=== PATIENT | female | born 1970 | race Caucasian/White ===

== ENCOUNTER 2018-09-30 16:50 | Emergency (ER) | payer SELFPAY ==
[~2018-09-30] VITALS: Ht 162.6 cm; Wt 77.1 kg
[2018-09-30 17:10] LABS: BASO % 0 % (0-3); EOS # 0.1 x10^3/uL (0.0-0.7); EOS % 2 % (0-3); HEMATOCRIT 37.8 % (36.0-47.0); HEMOGLOBIN 13.3 g/dL (12.0-15.5); LYMPH # 1.4 x10^3/uL (1.0-4.8); LYMPH % 17 % (24-48); MEAN CORPUSCULAR HEMOGLOBIN 32 pg (25-35); MEAN CORPUSCULAR HGB CONC 35 g/dL (31-37); MEAN CORPUSCULAR VOLUME 90 fL (79-100); MONO # 0.4 x10^3/uL (0.0-1.1); MONO % 5 % (0-9); NEUT # 6.4 x10^3uL (1.8-7.7); NEUT % 76 % (31-73); PLATELET COUNT 302 x10^3/uL (140-400); RED BLOOD COUNT 4.21 x10^6/uL (3.50-5.40); RED CELL DISTRIBUTION WIDTH 13.8 % (11.5-14.5); WHITE BLOOD COUNT 8.5 x10^3/uL (4.0-11.0)
[2018-09-30 17:20] LABS: PROTHROMBIN TIME PATIENT 12.5 SEC (11.7-14.0)
[2018-09-30 17:24] LABS: CALCIUM 9.1 mg/dL (8.5-10.1); CREATININE 0.9 mg/dL (0.6-1.0); GFR 66.3
[2018-09-30 17:31] LABS: ALBUMIN 3.6 g/dL (3.4-5.0); MAGNESIUM 2.1 mg/dL (1.8-2.4); TOTAL BILIRUBIN 0.4 mg/dL (0.2-1.0); TOTAL PROTEIN 7.3 g/dL (6.4-8.2)
[2018-09-30 18:05] VITALS: BP 120/73
--- NOTE | 2018-09-30 23:54 | RAD ---
AP portable chest radiograph 09/30/2018 Clinical History: Unenhanced CT. Chest pressure for one hour. An AP erect portable digital radiograph of the chest was obtained. Comparison study is dated 07/19/2012. The cardiac silhouette is normal in size. The thoracic aorta is mildly tortuous. No acute pulmonary infiltrate is seen. Blunting of the left costophrenic angle is seen which likely represents pleural thickening, unchanged. A small calcified granuloma is seen involving the right lower lobe. No pneumothorax is noted. Degenerative changes are seen involving the thoracic spine and both shoulders. Impression: No acute abnormality is seen. Electronically signed by: Edmundo Villa MD (09/30/2018 11:51 PM) [id number]
--- NOTE | 2018-10-01 05:06 | EKG ---
[facility] [address] [place] [address] Test Date: 2018-09-30 Test Time: 16:57:46 Pat Name: RUBY MURRIETA Department: Room: Gender: F Vice President: : 1970 Requested By: JESSICA SIERRA Order Number: [id number] Reading MD: Feng Escobar Measurements Intervals [place] Rate: 71 P: 25 MN: 128 QRS: 60 QRSD: 88 T: 50 QT: 382 QTc: 420 Interpretive Statements SINUS RHYTHM NO SPECIFIC ECG ABNORMALITIES RI6.01 Compared to ECG 12/23/2012 18:21:34 No significant changes Electronically Signed On 10-01-2018 9:50:00 FINANCE CLERK by Feng Escobar
== END 2018-09-30 18:47 | disposition home or self-care (01) ==
LOC: ER 16:50
DX: I47.1 Supraventricular tachycardia (principal); F17.200 Nicotine dependence, unspecified, uncomplicated
CPT/HCPCS: 36415; 71045; 80053; 82550; 83735; 83880; 84484; 85025; 85610; 93005; 99284

== ENCOUNTER 2018-10-28 21:26 | Emergency (ER) | payer SELFPAY ==
[~2018-10-28] VITALS: Ht 162.6 cm; Wt 77.1 kg
--- NOTE | 2018-10-28 21:50 | PHYS DOC ---
Past Medical History Past Medical History: Hypothyroid Additional Past Medical Histor: SVT, RA, HEP C W/ JACE TX Past Surgical History: Other Additional Past Surgical Histo: ECTOPIC Alcohol Use: None Drug Use: None Adult General Chief Complaint Chief Complaint: RAPID HEART RATE HPI HPI Patient is a 48 year old female who presents with SVT. Patient has had this before. Tonight's*rate started approximately 30 minutes prior to calling EMS. She was unable to use any of her home techniques to break the SVT. EMS arrived, established IV access, and gave her adenosine which did resolve the SVT. Patient denies any chest pain or palpitations. No nausea or vomiting.[] Review of Systems Review of Systems Constitutional: Denies fever or chills [] Eyes: Denies change in visual acuity, redness, or eye pain [] HENT: Denies nasal congestion or sore throat [] Respiratory: Denies cough or shortness of breath [] Cardiovascular: No additional information not addressed in HPI [] GI: Denies abdominal pain, nausea, vomiting, bloody stools or diarrhea [] : Denies dysuria or hematuria [] Musculoskeletal: Denies back pain or joint pain [] Integument: Denies rash or skin lesions [] Neurologic: Denies headache, focal weakness or sensory changes [] Endocrine: Denies polyuria or polydipsia [] All other systems were reviewed and found to be within normal limits, except as documented in this note. Allergies Allergies Allergies Coded Allergies Type Severity Reaction Last Updated Verified No Known Drug Allergies 09/30/18 No Physical Exam Physical Exam Constitutional: Well developed, well nourished, no acute distress, non-toxic appearance. [] HENT: Normocephalic, atraumatic, bilateral external ears normal, oropharynx moist, no oral exudates, nose normal. [] Eyes: PERRLA, EOMI, conjunctiva normal, no discharge. [] Neck: Normal range of motion, no tenderness, supple, no stridor. [] Cardiovascular:Heart rate regular rhythm, no murmur [] Lungs & Thorax: Bilateral breath sounds clear to auscultation [] Abdomen: Bowel sounds normal, soft, no tenderness, no masses, no pulsatile masses. [] Skin: Warm, dry, no erythema, no rash. [] Back: No tenderness, no CVA tenderness. [] Extremities: No tenderness, no cyanosis, no clubbing, ROM intact, no edema. [] Neurologic: Alert and oriented X 3, normal motor function, normal sensory function, no focal deficits noted. [] Psychologic: Affect normal, judgement normal, mood normal. [] Current Patient Data Vital Signs Vital Signs Date Time Temp Pulse Resp B/P (MAP) Pulse Ox O2 Delivery O2 Flow Rate FiO2 10/28/18 21:30 98.4 69 22 134/72 (92) 100 Room Air 98.4 Lab Values Laboratory Tests Test 10/28/18 21:45 10/28/18 22:30 White Blood Count 7.0 x10^3/uL (4.0-11.0) Red Blood Count 4.21 x10^6/uL (3.50-5.40) Hemoglobin 13.2 g/dL (12.0-15.5) Hematocrit 37.3 % (36.0-47.0) Mean Corpuscular Volume 89 fL (79-100) Mean Corpuscular Hemoglobin 31 pg (25-35) Mean Corpuscular Hemoglobin Concent 35 g/dL (31-37) Red Cell Distribution Width 13.5 % (11.5-14.5) Platelet Count 316 x10^3/uL (140-400) Neutrophils (%) (Auto) 69 % (31-73) Lymphocytes (%) (Auto) 23 % (24-48) L Monocytes (%) (Auto) 6 % (0-9) Eosinophils (%) (Auto) 1 % (0-3) Basophils (%) (Auto) 1 % (0-3) Neutrophils # (Auto) 4.8 x10^3uL (1.8-7.7) Lymphocytes # (Auto) 1.6 x10^3/uL (1.0-4.8) Monocytes # (Auto) 0.5 x10^3/uL (0.0-1.1) Eosinophils # (Auto) 0.1 x10^3/uL (0.0-0.7) Basophils # (Auto) 0.0 x10^3/uL (0.0-0.2) Prothrombin Time 12.6 SEC (11.7-14.0) Prothrombin Time INR 1.0 (0.8-1.1) Sodium Level 143 mmol/L (136-145) Potassium Level 4.5 mmol/L (3.5-5.1) Chloride Level 105 mmol/L (98-107) Carbon Dioxide Level 31 mmol/L (21-32) Anion Gap 7 (6-14) Blood Urea Nitrogen 12 mg/dL (7-20) Creatinine 1.0 mg/dL (0.6-1.0) Estimated GFR (Cockcroft-Gault) 58.7 BUN/Creatinine Ratio 12 (6-20) Glucose Level 95 mg/dL (70-99) Calcium Level 9.8 mg/dL (8.5-10.1) Magnesium Level 2.2 mg/dL (1.8-2.4) Total Bilirubin 0.3 mg/dL (0.2-1.0) Aspartate Amino Transferase (AST) 16 U/L (15-37) Alanine Aminotransferase (ALT) 18 U/L (14-59) Alkaline Phosphatase 85 U/L (46-116) Troponin I Quantitative < 0.017 ng/mL (0.000-0.055) Total Protein 7.8 g/dL (6.4-8.2) Albumin 3.9 g/dL (3.4-5.0) Albumin/Globulin Ratio 1.0 (1.0-1.7) Laboratory Tests 10/28/18 21:45 Laboratory Tests 10/28/18 22:30 EKG EKG EKG showed a sinus rhythm, 67 bpm, normal axis, QTC 423 ms, no ST elevation, no acute changes from EKG of 09/30/2018.[] Radiology/Procedures Radiology/Procedures Chest x-ray AP view was taken of the chest. Heart is normal in size. There is slight density at the left costophrenic angle which is similar to an old study from 2012 is probably chronic pleural thickening. No other infiltrates are noted. There is a granuloma at the right costophrenic angle. No other new infiltrates are noted. The heart is normal in size. IMPRESSION: 1. Chronic pleural thickening on the left. 2. No acute infiltrates[] Course & Med Decision Making Course & Med Decision Making Pertinent Labs and Imaging studies reviewed. (See chart for details) ED course: Patient arrived, was placed in bed, tolerated exam well. Patient remained in sinus rhythm. After return of laboratory and imaging studies these were discussed with the patient who voiced understanding. All questions were answered. Hector decision making: This patient appears to have had another episode of SVT. No evidence of acute coronary syndrome, no evidence of significant electrolyte abnormality. No evidence of pneumonia or pneumothorax.[] Dragon Disclaimer Dragon Disclaimer This electronic medical record was generated, in whole or in part, using a voice recognition dictation system. Departure Departure Impression: Primary Impression: Supraventricular tachycardia Disposition: 01 HOME, SELF-CARE Condition: GOOD Referrals: RJ LAGUNA APRN (PCP) Follow up in 2 days Patient Instructions: Supraventricular Tachycardia Additional Instructions: Follow-up with your regular doctor in 2 days. Return to the ER if worsening palpitations, chest pain, or any other concerns. ROSALIND DODD DO Oct 28, 2018 21:50
[2018-10-28 21:55] LABS: BASO % 1 % (0-3); EOS # 0.1 x10^3/uL (0.0-0.7); EOS % 1 % (0-3); HEMATOCRIT 37.3 % (36.0-47.0); HEMOGLOBIN 13.2 g/dL (12.0-15.5); LYMPH # 1.6 x10^3/uL (1.0-4.8); LYMPH % 23 % (24-48); MEAN CORPUSCULAR HEMOGLOBIN 31 pg (25-35); MEAN CORPUSCULAR HGB CONC 35 g/dL (31-37); MEAN CORPUSCULAR VOLUME 89 fL (79-100); MONO # 0.5 x10^3/uL (0.0-1.1); MONO % 6 % (0-9); NEUT # 4.8 x10^3uL (1.8-7.7); NEUT % 69 % (31-73); PLATELET COUNT 316 x10^3/uL (140-400); RED BLOOD COUNT 4.21 x10^6/uL (3.50-5.40); RED CELL DISTRIBUTION WIDTH 13.5 % (11.5-14.5)
[2018-10-28 22:09] LABS: PROTHROMBIN TIME PATIENT 12.6 SEC (11.7-14.0)
--- NOTE | 2018-10-28 22:13 | RAD ---
AP chest. HISTORY: Heart palpitations AP view was taken of the chest. Heart is normal in size. There is slight density at the left costophrenic angle which is similar to an old study from 2012 is probably chronic pleural thickening. No other infiltrates are noted. There is a granuloma at the right costophrenic angle. No other new infiltrates are noted. The heart is normal in size. IMPRESSION: 1. Chronic pleural thickening on the left. 2. No acute infiltrates. Electronically signed by: Tone Lopez MD (10/28/2018 10:09 PM) [id number]
[2018-10-28 22:56] LABS: CALCIUM 9.8 mg/dL (8.5-10.1); GFR 58.7; POTASSIUM 4.5 mmol/L (3.5-5.1)
[2018-10-28 23:00] VITALS: BP 156/80
[2018-10-28 23:02] LABS: ALBUMIN 3.9 g/dL (3.4-5.0); MAGNESIUM 2.2 mg/dL (1.8-2.4); TOTAL BILIRUBIN 0.3 mg/dL (0.2-1.0); TOTAL PROTEIN 7.8 g/dL (6.4-8.2)
--- NOTE | 2018-10-29 09:05 | EKG ---
[facility] [address] [place] [address] Test Date: 2018-10-28 Test Time: 21:30:03 Pat Name: RUBY MURRIETA Department: Room: Gender: F Senior Nuclear Medicine Technologist: : 1970 Requested By: ROSALIND DODD Order Number: [id number] Reading MD: Feng Escobar Measurements Intervals [place] Rate: 67 P: 34 CT: 132 QRS: 51 QRSD: 92 T: 28 QT: 398 QTc: 423 Interpretive Statements SINUS RHYTHM NO SPECIFIC ECG ABNORMALITIES RI6.01 Compared to ECG 09/30/2018 16:57:46 No significant changes Electronically Signed On 11-05-2018 10:54:39 CREATIVE GURU by Feng Escobar
== END 2018-10-28 23:19 | disposition home or self-care (01) ==
LOC: ER 21:26
DX: I47.1 Supraventricular tachycardia (principal); E03.9 Hypothyroidism, unspecified; M06.9 Rheumatoid arthritis, unspecified
CPT/HCPCS: 36415; 71045; 80053; 83735; 83880; 84443; 84484; 85025; 85610; 93005; 99284

== ENCOUNTER 2019-09-02 18:18 | Emergency (ER) | payer SELFPAY ==
[~2019-09-02] VITALS: Ht 162.6 cm; Wt 79.4 kg
[2019-09-02 18:41] VITALS: BP 155/78
[2019-09-02] MEDS ORDERED: BUPIVACAINE MPF 0.5% 30 ML VIAL. INJ ONE (18:45)
--- NOTE | 2019-09-02 19:03 | PHYS DOC ---
Past Medical History Past Medical History: Hypothyroid Additional Past Medical Histor: SVT Past Surgical History: No Surgical History Additional Past Surgical Histo: ECTOPIC Alcohol Use: None Drug Use: None Adult General Chief Complaint Chief Complaint: FINGER INJURY HPI HPI Patient is a 49 year old female, accompanied by her significant other, who presents to the emergency department with complaints of a laceration and pain to her left index finger distal to the DIP. Patient states she accidentally shut her finger between 2 car doors. She denies any numbness, tingling, or weakness. She is unsure when her last tetanus shot was. Currently the patient rates her pain a 10 out of 10 on the pain scale, she denies any alleviating factors, the pain is worse with movement or palpation. Review of Systems Review of Systems Constitutional: Denies fever or chills [] Musculoskeletal: see HPI; see HPI [] Neurologic: Denies focal weakness or sensory changes [] Complete systems were reviewed and found to be within normal limits, except as documented in this note. Current Medications Current Medications Current Medications Medications (Trade) Dose Ordered Sig/Teresa Start Time Stop Time Status Last Admin Dose Admin Acetaminophen/ Hydrocodone Bitart (Lortab 5/325) 1 tab 1X ONCE 09/02/19 21:15 09/02/19 21:16 DC 09/02/19 21:24 1 TAB Bupivacaine HCl (Sensorcaine Mpf 0.5%) 30 ml 1X ONCE 09/02/19 18:45 09/02/19 18:46 DC 09/02/19 19:59 30 ML Diphtheria/ Tetanus/Acell Pertussis (Boostrix) 0.5 ml ONCE ONCE 09/02/19 21:15 09/02/19 21:16 DC 09/02/19 21:25 0.5 ML Neomycin/ Polymyxin/ Bacitracin (Triple Antibiotic Ointment) 1 pkt 1X ONCE 09/02/19 20:30 09/02/19 20:31 DC 09/02/19 21:00 1 PKT Allergies Allergies Allergies Coded Allergies Type Severity Reaction Last Updated Verified No Known Drug Allergies 09/30/18 No Physical Exam Physical Exam Constitutional: Well developed, well nourished, no acute distress, non-toxic appearance. [] HENT: Normocephalic, atraumatic, bilateral external ears normal, nose normal. [] Eyes: PERRLA, EOMI, conjunctiva normal, no discharge. [] Neck: Normal range of motion, no stridor. [] Cardiovascular:Heart rate regular rhythm Lungs & Thorax: Bilateral breath sounds clear to auscultation [] Abdomen: verbalized an understanding of home care, medications, follow-up, and return to ED instructions and was in agreement with the plan of care. Skin: Warm, dry, no erythema, no rash; 1.5 cm laceration distal to DIP of left third finger extending horizontally through entire nail bed and into the lateral aspect of the finger. [] Extremities: Distal left middle finger ttp, no cyanosis, no clubbing, ROM intact, no edema. [] Neurologic: Alert and oriented X 3, normal motor function, normal sensory function, no focal deficits noted. [] Psychologic: Affect normal, judgement normal, mood normal. [] Current Patient Data Vital Signs Vital Signs Date Time Temp Pulse Resp B/P (MAP) Pulse Ox O2 Delivery O2 Flow Rate FiO2 09/02/19 21:24 16 96 Room Air 09/02/19 18:41 97.6 65 155/78 (103) 97.6 EKG EKG [] Radiology/Procedures Radiology/Procedures PROCEDURE: FINGER(S) LEFT EXAM: LEFT HAND 3 VIEWS. HISTORY: Left third finger pain after injury. COMPARISON: None. FINDINGS: There is soft tissue swelling about the third digit. There is a small chip fracture at the tip of the third distal phalangeal tuft. Alignment is maintained. 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 IMPRESSION: 1. Chip fracture at the tip of the third distal phalangeal tuft. 2107- Course & Med Decision Making Course & Med Decision Making Pertinent Labs and Imaging studies reviewed. (See chart for details) [] Dragon Disclaimer Dragon Disclaimer This electronic medical record was generated, in whole or in part, using a voice recognition dictation system. Departure Departure Impression: Primary Impression: Laceration of left middle finger w/o foreign body with damage to nail Additional Impression: Open fracture of tuft of distal phalanx of finger with routine healing Disposition: 01 HOME, SELF-CARE Condition: STABLE Referrals: RJ LAGUNA APRN (PCP) Patient Instructions: Fingertip Laceration Additional Instructions: Follow-up with Dr. Angulo next week at . His nurse, Jessica, will call you tomorrow morning to schedule the clinic appointment. Dressing changes as instructed by Dr. Angulo's office, keep the current dressing in place until directed to change the dressing. Fill the prescriptions and take them as directed. Return to the ER if symptoms worsen, you develop a fever, or for intolerable pain. Scripts Hydrocodone Bit/Acetaminophen (HYDROCODONE-APAP 5-325 ) 1 Tab Tablet 1 TAB PO PRN Q6HRS PRN for PAIN for 5 Days, #20 TAB 0 Refills Prov: JENNIFER CHUNG MATH INSTRUCTOR 09/02/19 Amoxicillin/Potassium Clav (AUGMENTIN 875-125 TABLET) 1 Each Tablet 1 TAB PO BID for 7 Days, #14 TAB 0 Refills Prov: JENNIFER CHUNG MATH INSTRUCTOR 09/02/19 Splinting Splinting : Location: L middle finger Pre-Made Type: metal (aluminum finger splint) Pre-Proc Neuro Vasc Exam: normal Post-Proc Neuro Vasc Exam: normal, unchanged from pre-exam Progress aluminum finger splint to L middle finger fabiano taped to L ring finger placed by myself after bulky dressing was applied to the affected finger by nurse. Laceration/Wound Repair Laceration/Wound Repair : Wound Location: upper extremity (L middle finger) Wound's Depth, Shape: superficial Wound Length (cm): 1 Wound Explored: no foreign body removed Irrigated w/ Saline (ccs): 100 Betadine Prep?: No Anesthesia: 0.5% Sensorcaine Volume Anesthetic (ccs): 4 Wound Debrided: minimal Wound Repaired With: sutures Suture Size/Type: 4:0 (Ethilon) Number of Sutures: 2 Layer Closure?: No Sterile Dressing Applied?: No Splint Applied?: Yes Type of Splint Applied: aluminum finger splint as documented above Sling Applied?: No Progress pt tolerated procedure well. 2 sutures were placed to the lateral edge of the la ceration that extended beyond the nail bed. No complications, minimal blood loss. Problem Qualifiers Primary Impression: Laceration of left middle finger w/o foreign body with damage to nail Encounter type: initial encounter Qualified Codes: S61.313A - Laceration without foreign body of left middle finger with damage to nail, initial encounter JENNIFER CHUNG MATH INSTRUCTOR Sep 02, 2019 19:03
[2019-09-02] MEDS ORDERED: NEOMY/BACITR/POLYMYXIN OINT PACKET. TP ONE (20:30)
--- NOTE | 2019-09-02 20:37 | RAD ---
EXAM: LEFT HAND 3 VIEWS. HISTORY: Left third finger pain after injury. COMPARISON: None. FINDINGS: There is soft tissue swelling about the third digit. There is a small chip fracture at the tip of the third distal phalangeal tuft. Alignment is maintained. 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 IMPRESSION: 1. Chip fracture at the tip of the third distal phalangeal tuft. Electronically signed by: Augusta Glasgow MD (09/02/2019 8:35 PM) [facility]
[2019-09-02] MEDS ORDERED: HYDROcodone/APAP 5/325MG 1 TAB TABLET PO ONE (21:15)
[2019-09-02] MEDS ORDERED: DIPHTH,PERTUSS(ACELL),TET TOX 0.5 ML DISP.SYRIN. VAX IM ONE (21:15)
[2019-09-02] MEDS ORDERED: HYDR-2761 PO (21:28)
[2019-09-02] MEDS ORDERED: AMOX1TAB61 PO (21:28)
== END 2019-09-02 21:40 | disposition home or self-care (01) ==
LOC: ER 18:18
DX: S61.313A Laceration without foreign body of left middle finger with damage to nail, initial encounter (principal); E03.9 Hypothyroidism, unspecified; W23.0XXA Caught, crushed, jammed, or pinched between moving objects, initial encounter; Y93.89 Activity, other specified; Y92.89 Other specified places as the place of occurrence of the external cause; Y99.8 Other external cause status
CPT/HCPCS: 12001; 73140; 90471; 90715; 99284; J3490

== ENCOUNTER → 2020-09-23 | Emergency (ER) | payer MEDICAID ==
[~2020-09-23] VITALS: Ht 165.1 cm; Wt 79.5 kg
[~2020-09-23] MED LIST: AMOX1TAB61 PO; HYDR-2761 PO
[2020-09-23 20:35] VITALS: BP 142/80
== END | disposition left against medical advice (07) ==
LOC: ER 20:09
DX: M79.621 Pain in right upper arm (principal); Z53.21 Procedure and treatment not carried out due to patient leaving prior to being seen by health care provider